=== PATIENT | female | born 1945 | race Caucasian/White ===

== ENCOUNTER 2017-01-20 07:30 | Day surgery (SDC) | payer MEDICARE ==
[2017-01-19 11:26] VITALS: BMI 22.3
[2017-01-20] MEDS ORDERED: Cyclopentolate 1% Opth Drop 2 ML BOT ONE (08:12)
[2017-01-20] MEDS ORDERED: Phenylephrine HCl 2.5% Ophth Soln 5 ML BOT ONE (08:12)
[2017-01-20] MEDS ORDERED: Fentanyl 100 MCG/2 ML VIAL ONE (08:50)
[2017-01-20] MEDS ORDERED: Diprivan 20 ML ONE (08:50)
[2017-01-20] MEDS ORDERED: Midazolam HCl 2 mg/2 ml Vial ONE (08:50)
--- NOTE | 2017-01-20 11:26 | OP ---
DATE OF PROCEDURE: 01/20/2017 PREOPERATIVE DIAGNOSIS: Epiretinal membrane, left eye. POSTOPERATIVE DIAGNOSIS: Epiretinal membrane, left eye. PROCEDURE: Pars plana vitrectomy and membrane peel, left eye. SURGEON: Dr. Daniele Kruse ANESTHESIA: Local with monitored anesthesia care. PROCEDURE IN DETAIL: The patient was identified in the preoperative holding area. Appropriate infor med consent for the planned surgical procedure on the left eye had been obtained. The patient was tr ansported to the operative suite where appropriate cardiopulmonary monitoring was established. Local anesthesia was obtained using retrobulbar and modified Van Lint lid block using 50/50 mixture of 4% lidocaine and 0.75% bupivacaine. The patient was prepped and draped in the usual sterile manner for ophthalmic surgery on the left eye. Lid speculum was placed in the left eye. The 25-gauge trocars w ere placed in conjunctiva and sclera supratemporally, inferotemporally, and supranasally. Infusion l ine was placed inferotemporally. Light pipe and vitreous cutter were inserted into the eye. Core of vitrectomy was performed. Indocyanine green dye was infused onto the posterior pole x2, identifying the epiretinal membrane. This was elevated on the edges using a membrane scraper and peeled across the macula. Indirect ophthalmoscopy was used to examine the retina 360 degrees. No holes, breaks or tears were identified. Trocars were removed and eye was noted to retain pressure well. Retrobulbar Kenalog and subconjunctival Ancef were placed. Atropine and antibiotic ointment were placed, and th e eye was patched and shielded. The patient was taken the postoperative recovery unit in good condit ion suffered no immediate perioperative period. DISCHARGE INSTRUCTIONS: The patient was instructed to keep patch and shield on, avoid lifting or denys ding, and follow up in the morning with Dr. Kruse.
[2017-01-20] MEDS ORDERED: Fluorouracil 100 MG, Enoxaparin Sodium 25 MG, EPINEPHrine 0.3 MG in Ophthalmic Irrigati... IVPB SCH (13:04)
[2017-01-20] MEDS ORDERED: Lidocaine 1% PF 5 ML VIAL ONE (16:35)
[2017-01-20] MEDS ORDERED: Propofol 200 MG/20 ML VIAL ONE (16:35)
== END 2017-01-20 10:50 | disposition home or self-care (01) ==
LOC: SDC 07:30
PROVIDERS: ATTEND Ophthalmology Retina Specialist
PROC: 08T53ZZ Resection of Left Vitreous, Percutaneous Approach (ICD-10-PCS; principal; 2017-01-20)
PROC: 08NF3ZZ Release Left Retina, Percutaneous Approach (ICD-10-PCS; 2017-01-20)
DX: H35.372 Puckering of macula, left eye (principal); I10 Essential (primary) hypertension; C85.90 Non-Hodgkin lymphoma, unspecified, unspecified site; Z88.8 Allergy status to other drugs, medicaments and biological substances; Z91.040 Latex allergy status; Z79.899 Other long term (current) drug therapy; Z98.42 Cataract extraction status, left eye; Z98.41 Cataract extraction status, right eye; Z95.828 Presence of other vascular implants and grafts; Z96.642 Presence of left artificial hip joint; Z90.49 Acquired absence of other specified parts of digestive tract; Z90.710 Acquired absence of both cervix and uterus; Z90.722 Acquired absence of ovaries, bilateral; Z90.79 Acquired absence of other genital organ(s)
CPT/HCPCS: J0171; J1650; J2001; J2250; J2704; J3010; J9190

== ENCOUNTER 2018-11-21 14:44 | Outpatient (CLI) | payer MEDICARE ==
[2018-11-21 15:02] LABS: #Basophils 0.1 thou/uL (0.0-0.2); #Eosinphils 0.1 thou/uL (0.0-0.7); #Lymphocytes 2.4 thou/uL (1.20-3.40); #Monocytes 0.6 thou/uL (0.11-0.59); #Neutrophils 3.6 thou/uL (1.40-6.50); %Eosinophils 2.2 % (0.0-10.0); %Lymphocytes 34.5 % (21.0-51.0); %Monocytes 9.2 % (0.0-10.0); %Neutrophils 53.1 % (42.0-75.0); Hemoglobin 12.3 g/dL (12.0-16.0); Mean Corpuscular HGB CONC 33.2 g/dL (32.0-36.0); Mean Corpuscular Hemoglobin 31.5 pg (27.0-31.0); Mean Corpuscular Volume 94.9 fL (78.0-98.0); Mean Platelet Volume 8.1 fL (7.4-10.4); Platelet Count 160 thou/uL (130-400); RBC Distribution Width 12.3 % (11.5-14.5); White Blood Cell (WBC) Count 6.8 thou/uL (4.8-10.8)
[2018-11-21 15:19] LABS: ALT (SGPT) 13 U/L (8-55); AST (SGOT) 20 U/L (5-34); Albumin 4.5 g/dL (3.4-4.8); Alkaline Phosphatase 65 U/L (40-110); Anion Gap 14 mmol/L (10-20); BUN (Urea Nitrogen) 17 mg/dL (9.8-20.1); Bilirubin, Total 0.3 mg/dL (0.2-1.2); Calc. Creatinine Clearance 0 mL/min (70-130); Calcium 9.7 mg/dL (7.8-10.44); Carbon Dioxide 27 mmol/L (23-31); Chloride 104 mmol/L (98-107); Estimated GFR-MDRD 73; Globulin 3.4 g/dL (2.4-3.5); Glucose 84 mg/dL (83-110); Potassium 3.8 mmol/L (3.5-5.1); Protein, Total 7.9 g/dL (6.0-8.3); Sodium 141 mmol/L (136-145)
--- NOTE | 2018-11-21 15:48 | RAD ---
TWO VIEW ABDOMEN: 11/21/18 Supine and upright views. INDICATIONS: Pain with hematuria. No evidence of urinary tract calculus identified on plain film. The bowel gas pattern unremarkable. O sseous structures unremarkable. Degenerative changes in the lumbar spine. IMPRESSION: Unremarkable bowel gas patter. No definite urinary tract calcification identified. POS: [facility]
== END 2018-11-21 14:45 | disposition home or self-care (01) ==
LOC: SCSRAD 14:44
PROVIDERS: ATTEND Family Medicine
DX: R31.9 Hematuria, unspecified (principal)
CPT/HCPCS: 36415; 74019; 80053; 85025

== ENCOUNTER 2018-11-28 13:41 | Outpatient (CLI) | payer MEDICARE ==
--- NOTE | 2018-11-28 14:39 | ULT ---
RENAL ULTRASOUND: HISTORY: Hematuria. COMPARISON: PET scan exams from 09/23/2015 and 11/25/2015. FINDINGS: Real-time imaging of the right and left kidneys shows normal sized kidneys with the right kidney araceli uring 8.9 and the left kidney measuring 8.8 cm. There is a lower pole parapelvic cyst on the right, m easuring 1.4 cm. On the left side there is what appears to be hydronephrosis but in reviewing the pre vious exam this actually appears to represent parapelvic cysts. The bladder region is unremarkable. IMPRESSION: Parapelvic cysts; otherwise unremarkable examination. POS: OFF
== END 2018-11-28 13:42 | disposition home or self-care (01) ==
LOC: SCSULT 13:41
PROVIDERS: ATTEND Family Medicine
DX: R31.9 Hematuria, unspecified (principal); N94.89 Other specified conditions associated with female genital organs and menstrual cycle
CPT/HCPCS: 76770

== ENCOUNTER 2018-12-15 08:48 | Outpatient (CLI) | payer MEDICARE ==
--- NOTE | 2018-12-15 10:29 | RAD ---
EXAM: Chest 2 views: HISTORY: Diffuse large B-cell lymphoma COMPARISON: 10/03/2015 FINDINGS: There is a normal-sized cardiomediastinal silhouette. Atherosclerotic calcifications are seen in the aorta. Increased interstitial markings are present. There is no evidence of consolidation, mass, or pleural effusion. The bones are unremarkable. IMPRESSION: No evidence of acute cardiopulmonary disease
--- NOTE | 2018-12-15 10:51 | CT ---
CT Abdomen Pelvis W WO con: 12/15/2018 12:00 AM CLINICAL HISTORY: History of B-cell lymphoma. Hematuria beginning in January.. TECHNIQUE: Multiple contiguous axial images were obtained and a CT of the abdomen and pelvis without and with IV contrast. Postcontrast images were obtained in the nephrographic and excretory phases. Sagittal and coronal reformats were performed. COMPARISON: None. FINDINGS: Kidneys and Urinary Tract: Right kidney and ureter: No calculi. No hydronephrosis or hydroureter. Parapelvic cysts in the hilum. No solid renal masses. No urothelial lesions: no filling defect, dilation, stricture or wall thickening. Left kidney and ureter: No calculi. No hydronephrosis or hydroureter. Parapelvic cysts in the hilum. No solid renal masses. No urothelial lesions: no filling defect, dilation, stricture or wall thickening. Urinary bladder: Normal, no calculi, mass or other lesions. Remainder of Abdomen and Pelvis: Liver: Normal. Gallbladder and biliary system: Normal. No CT evident gallstones. No biliary ductal dilatation. Spleen: Normal. Pancreas: Normal. Adrenal glands: Normal. GI tract: Normal. Abdominal aorta and its major branches: Atherosclerotic calcifications No aneurysm. Peritoneum/retroperitoneum: Normal. No ascites. No adenopathy. Pelvic structures: Status post hysterectomy. No pelvic lymphadenopathy. Body wall and musculoskeletal: Degenerative changes in the spine. The patient is status post left hip arthroplasty. Visualized lower thorax: Normal. No pulmonary parenchymal mass or pleural effusion. IMPRESSION: Bilateral renal parapelvic cysts.
[2018-12-15] MEDS ORDERED: Iopamidol 370 76% 100 ML VIAL ONE (11:39)
== END 2018-12-15 08:49 | disposition home or self-care (01) ==
LOC: CT 08:48
PROVIDERS: ATTEND Internal Medicine Medical Oncology
DX: C83.31 Diffuse large B-cell lymphoma, lymph nodes of head, face, and neck (principal); N28.1 Cyst of kidney, acquired
CPT/HCPCS: 71046; 74178

== ENCOUNTER 2019-01-05 07:01 | Day surgery (SDC) | payer MEDICARE ==
[2019-01-04 11:20] VITALS: BMI 21.4
[2019-01-05] MEDS ORDERED: PROPOFOL 200 MG/20 ML VIAL ONE (11:57)
[2019-01-05] MEDS ORDERED: Lidocaine 1% PF 5 ML VIAL ONE (11:58)
--- NOTE | 2019-01-05 15:33 | OP ---
DATE OF PROCEDURE: 01/05/2019 PROCEDURE PERFORMED: Colonoscopy. INDICATION FOR PROCEDURE: Screening for malignant neoplasm of the colon (no family history of polyps or cancer). DESCRIPTION OF PROCEDURE: After the risks and benefits of the procedure were explained to the patient including risks of bleeding, infection, perforation, reactions to anesthesia, aspiration, and/or pain, informed consent was obtained. The patient was then taken to the endoscopy suite, where she was placed in the left lateral decubitus position with deep sedation administered via propofol and anesthesia support. Once adequate sedation was achieved, a digital rectal examination was performed followed by introduction of the standard colonoscope, which was advanced to the cecum with some difficulty due to tortuosity and redundancy of the patient's colon that required manual abdominal pressure to facilitate passage of the scope. The quality of the prep was excellent. The patient tolerated the procedure well with no immediate perioperative complications. Upon conclusion of the procedure, all equipment was removed from the patient and she was transferred to Day Stay in satisfactory condition. FINDINGS: Digital rectal exam: Normal findings were seen on external examination. Colon findings: Normal-appearing mucosa was seen at the ileocecal valve and appendiceal orifice. Normal-appearing mucosa was also seen in the cecum, ascending, transverse, and descending colons. Three diverticula were seen within the sigmoid colon that were medium to large in size, but did not exhibit any evidence of diverticulitis. Normal-appearing mucosa was then seen in the rectum with normal findings on rectal retroflexion. IMPRESSION: 1. Mild sigmoid diverticulosis. 2. Otherwise normal colonoscopy. RECOMMENDATIONS: 1. We would recommend a higher fiber diet, given the presence of diverticulosis and history of chronic constipation. 2. Recommend a repeat colonoscopy in 10 years for further screening for colonic neoplasm. 3. Continue current medications. 4. Follow up in the GI clinic as needed. Job ID: [id number]
== END 2019-01-05 10:15 | disposition home or self-care (01) ==
LOC: SDC 07:01
PROVIDERS: ATTEND Internal Medicine
PROC: 0DJD8ZZ Inspection of Lower Intestinal Tract, Via Natural or Artificial Opening Endoscopic (ICD-10-PCS; principal; 2019-01-05)
DX: Z12.11 Encounter for screening for malignant neoplasm of colon (principal); K57.30 Diverticulosis of large intestine without perforation or abscess without bleeding; Z88.8 Allergy status to other drugs, medicaments and biological substances; Z91.040 Latex allergy status; Z91.048 Other nonmedicinal substance allergy status
CPT/HCPCS: J2001; J2704

== ENCOUNTER 2019-01-09 06:13 | Outpatient (CLI) | payer MEDICARE ==
[2019-01-09 13:24] LABS: Hemoglobin 12.2 g/dL (12.0-16.0); Mean Corpuscular Volume 94.3 fL (78.0-98.0); Mean Platelet Volume 7.4 fL (7.4-10.4); Platelet Count 161 thou/uL (130-400); RBC Distribution Width 11.5 % (11.5-14.5); White Blood Cell (WBC) Count 7.9 thou/uL (4.8-10.8)
[2019-01-09 13:29] LABS: Prothrombin Time 13.4 SEC (12.0-14.7)
[2019-01-09 13:30] LABS: PTT 33.8 SEC (22.9-36.1)
[2019-01-09 13:36] LABS: Bacteria/HPF 3+ HPF (None Seen); Bilirubin Negative (Negative); Blood, Urine 1+ (Negative); Clarity Turbid (Clear); Glucose, Urine (Dipstick) Normal (Negative); Leukocyte 500 Leu/uL (Negative); Nitrite 2+ (Negative); Protein, Urine (Dipstick) 10 mg/dL (Neg-Trace); Squamous Epithelial None Seen HPF (0-3); Urobilinogen Normal mg/dL (Less than 2); WBC/HPF Greater than 50 HPF (0-3)
[2019-01-09 13:49] LABS: Anion Gap 20 mmol/L (10-20); BUN (Urea Nitrogen) 12 mg/dL (9.8-20.1); Calc. Creatinine Clearance 0 mL/min (70-130); Calcium 9.3 mg/dL (7.8-10.44); Carbon Dioxide 19 mmol/L (23-31); Chloride 104 mmol/L (98-107); Estimated GFR-MDRD 78; Glucose 78 mg/dL (83-110); Potassium 3.9 mmol/L (3.5-5.1); Sodium 139 mmol/L (136-145)
--- NOTE | 2019-01-14 13:25 | EKG ---
Test Reason : Blood Pressure : / mmHG Vent. Rate : 063 BPM Atrial Rate : 063 BPM P-R Int : 128 ms QRS Dur : 082 ms QT Int : 418 ms P-R-T Axes : 077 085 039 degrees QTc Int : 427 ms Normal sinus rhythm Normal ECG No previous ECGs available Confirmed by YAHAIRA CORONA (2) on 01/14/2019 1:24:54 PM Referred By: GHADA Confirmed By:YAHAIRA CORONA
== END 2019-01-09 06:14 | disposition home or self-care (01) ==
LOC: LABBT 06:13
PROVIDERS: ATTEND Urology
DX: Z01.818 Encounter for other preprocedural examination (principal); D41.4 Neoplasm of uncertain behavior of bladder
CPT/HCPCS: 80048; 81001; 85027; 85610; 85730; 87077; 87086; 87186; 93005; 93010

== ENCOUNTER 2019-01-16 05:43 | Day surgery (SDC) | payer MEDICARE ==
[2019-01-09 12:34] VITALS: BMI 21.4
[2019-01-16] MEDS ORDERED: Fentanyl 100 MCG/2 ML VIAL ONE (06:59)
[2019-01-16] MEDS ORDERED: Levofloxacin 500 mg/D5W 100 ml Premix Bag ONE (07:22)
[2019-01-16] MEDS ORDERED: Iothalamate Meglumine 60% 50 ML VIAL FS ONE (07:46)
[2019-01-16] MEDS ORDERED: Ketorolac Tromethamine 30 MG/ML VIAL ONE (08:35)
[2019-01-16] MEDS ORDERED: Phenazopyridine HCl 97.5 MG TABLET ONE (08:35)
[2019-01-16] MEDS ORDERED: Oxybutynin 5 MG TAB ONE (08:35)
[2019-01-16] MEDS ORDERED: Morphine 2 MG/ML SYRINGE ONE (09:21)
[2019-01-16] MEDS ORDERED: Dexamethasone 20 MG/5 ML VIAL ONE (10:05)
[2019-01-16] MEDS ORDERED: PROPOFOL 200 MG/20 ML VIAL ONE (10:05)
[2019-01-16] MEDS ORDERED: PHENYLEPHRINE-NS 100 MCG/ML 10 ML SYRINGE ONE (10:05)
[2019-01-16] MEDS ORDERED: Lidocaine 1% PF 5 ML VIAL ONE (10:05)
[2019-01-16] MEDS ORDERED: Ondansetron PF 4 MG/2 ML Vial ONE (10:05)
--- NOTE | 2019-01-16 11:07 | OP ---
DATE OF PROCEDURE: 01/16/2019 PREOPERATIVE DIAGNOSIS: Bladder tumor. POSTOPERATIVE DIAGNOSIS: Bladder tumor. PROCEDURES PERFORMED: Transurethral resection of large bladder tumor, retrograde pyelogram. ANESTHESIA: General. SPECIMEN: Bladder tumor, left wall. ESTIMATED BLOOD LOSS: Minimal. COMPLICATIONS: None. DESCRIPTION OF PROCEDURE: After informed consent, the patient was taken to the operating room, transferred to the table under her own power. Anesthesia was established. A time-out was performed showing the correct patient, site, and procedure. Preoperative antibiotics were administered. She was prepped and draped in the lithotomy position. We began by performing a bimanual exam, noting no abnormalities. I then inserted the rigid cystoscope and performed systematic examination of the bladder with both 30-degree and 70-degree lenses. She has a 4-cm tumor on the left wall with 3 cm of low profile tumor emanating towards the posterior wall. The left ureteral orifice was uninvolved. There were no other mucosal abnormalities. Bilateral retrograde pyelograms performed showing good filling of both ureters and renal pelvis without filling defects or hydronephrosis. I then switched to the resectoscope and using the resection loop, I removed the large tumor and cauterized the entire area involved with low profile tumor. All edges of resection were cauterized ensuring meticulous hemostasis. The bladder was then drained removing the specimen, which was passed off and then the bladder was re-examined noting no active bleeding. There was no evidence of bladder rupture. The scope was then withdrawn and an 18-Azeri silicone catheter placed with 10 mL instilled in the balloon. This drained clear fluid. A 20 mL of mitomycin solution was instilled in the bladder through the catheter, which was then capped. This will remain for 1 hour in PACU. The patient was then brought down from lithotomy, awoken from anesthesia, transferred back to her hospital bed and taken to PACU in stable condition. Job ID: [id number]
== END 2019-01-16 10:50 | disposition home or self-care (01) ==
LOC: SDC 05:43
PROVIDERS: ATTEND Urology
PROC: 0TBB8ZX Excision of Bladder, Via Natural or Artificial Opening Endoscopic, Diagnostic (ICD-10-PCS; principal; 2019-01-16)
DX: C67.2 Malignant neoplasm of lateral wall of bladder (principal); Z85.72 Personal history of non-Hodgkin lymphomas; Z88.8 Allergy status to other drugs, medicaments and biological substances; Z91.040 Latex allergy status; Z91.048 Other nonmedicinal substance allergy status
CPT/HCPCS: 52235; 76000; J9280; 88305; J1100; J1885; J1956; J2001; J2270; J2405; J2704; J3010

== ENCOUNTER 2019-02-06 05:53 | Day surgery (SDC) | payer MEDICARE ==
[2019-02-05 11:38] VITALS: BMI 21.4
[2019-02-06] MEDS ORDERED: Cyclopentolate 1% Opth Drop 2 ML BOT ONE (06:09)
[2019-02-06] MEDS ORDERED: Phenylephrine 2.5% Ophth Soln 5 ML BOT ONE (06:10)
[2019-02-06] MEDS ORDERED: EPINEPHrine 0.3 MG in Ophthalmic Irrigation Solution 500 ML IRR SCH (06:30)
[2019-02-06] MEDS ORDERED: Midazolam HCl 2 mg/2 ml Vial ONE (06:54)
[2019-02-06] MEDS ORDERED: PROPOFOL 0 ML ONE (06:54)
[2019-02-06] MEDS ORDERED: Fentanyl 100 MCG/2 ML VIAL ONE (06:54)
[2019-02-06] MEDS ORDERED: PROPOFOL 20 ML ONE (06:55)
--- NOTE | 2019-02-06 09:35 | OP ---
DATE OF PROCEDURE: 02/06/2019 PRINCIPAL PREOPERATIVE DIAGNOSIS: Epiretinal membrane, left eye. POSTOPERATIVE DIAGNOSIS: Epiretinal membrane, left eye. NAME OF PROCEDURES PERFORMED: 1. 25-gauge pars plana vitrectomy, left eye. 2. Epiretinal membrane removal, left eye. 3. Partial internal limiting membrane removal, left eye. ESTIMATED BLOOD LOSS: None. SPECIMENS REMOVED: None. COMPLICATIONS: None. ANESTHESIA: MAC with retrobulbar block. SUMMARY OF OPERATION: The patient was identified in the preoperative holding area, where the correct eye being the left eye was marked for surgery. The patient was taken to the operating room, where MAC anesthesia was induced. A retrobulbar block was administered to the left eye. The block consisted of 1:1 ratio of 4% lidocaine and 0.75% Marcaine. Total of 5 mL was administered. The left eye was then prepped and draped in the usual sterile ophthalmic fashion for surgery. A wire-clip lid speculum was placed. A standard 25-gauge pars plana vitrectomy platform was fashioned with trocars placed approximately 3.5 mm from limbus. The infusion was noted to be within the vitreous cavity prior to being turned on to an infusion pressure of 30 mmHg. A posterior capsulectomy was performed with the use of the microvitrector to allow for clear visualization posteriorly. The light pipe and microvitrector were introduced in the eye under visualization of the BIOM viewing system. A peripheral shave vitrectomy was performed in this previously vitrectomized eye. Following completion of vitrectomy, ICG dye was used to stain the internal limiting membrane. Using the Saul ILM forceps, an epiretinal membrane peel was completed in a circumferential fashion about the fovea. The peel extended approximately 2 disk diameters in radius from the fovea circumferentially. Subsequently, the internal limiting membrane was re-stained with ICG dye. The internal limiting membrane did not come up in a smooth sheet. However, it came up in a piecemeal fashion, removing it to the safest extent possible. Following peeling, the microvitrector was reintroduced in the eye to remove the residual vitreous debris. A 360-degree scleral depressed exam of the periphery revealed no defects. The cannulas were sequentially removed with suturing required of the superior 2 sclerotomies with 8-0 Vicryl suture. Following suturing, all sclerotomies were noted to be watertight. Subconjunctival Ancef and Kenalog were injected. The wire-clip lid speculum was removed followed by application of TobraDex ophthalmic ointment and a light patch and shield. The patient tolerated the procedure well and was taken to the outpatient recovery area in good condition. Job ID: [id number]
[2019-02-06] MEDS ORDERED: Triamcinolone 40 MG/ML VIAL ONE (10:59)
[2019-02-06] MEDS ORDERED: Lidocaine 4% PF 5 ML AMP ONE (10:59)
[2019-02-06] MEDS ORDERED: Maxitrol 0.1% Opth Oint 3.5 GM TUBE ONE (10:59)
[2019-02-06] MEDS ORDERED: Bupivacaine PF 0.75% SDV 10 ML ONE (10:59)
[2019-02-06] MEDS ORDERED: Lidocaine 1% PF 5 ML VIAL ONE (10:59)
[2019-02-06] MEDS ORDERED: CEFAZOLIN 1 GM VIAL ONE (10:59)
[2019-02-06] MEDS ORDERED: Indocyanine Green 25 MG/10 ML VIAL ONE (10:59)
== END 2019-02-06 09:09 | disposition home or self-care (01) ==
LOC: SDC 05:53
PROVIDERS: ATTEND Ophthalmology Retina Specialist
PROC: 08T53ZZ Resection of Left Vitreous, Percutaneous Approach (ICD-10-PCS; principal; 2019-02-06)
PROC: 08NF3ZZ Release Left Retina, Percutaneous Approach (ICD-10-PCS; 2019-02-06)
DX: H35.372 Puckering of macula, left eye (principal); Z88.8 Allergy status to other drugs, medicaments and biological substances; Z91.040 Latex allergy status
CPT/HCPCS: J0171; J0690; J2001; J2250; J2704; J3010; J3301; J3490

== ENCOUNTER 2019-02-12 12:21 | Outpatient (CLI) | payer MEDICARE ==
--- NOTE | 2019-02-12 13:05 | RAD ---
XR Hip Lt 2-3 View: 02/12/2019 12:00 AM CLINICAL INDICATION: Pain COMPARISON: None. FINDINGS: No acute fracture. Left hip prosthesis is in place, without acute hardware complication. There are scattered degenerative change of the osseous structures. IMPRESSION: 1. No acute osseous abnormality.
--- NOTE | 2019-02-12 13:06 | RAD ---
XR Femur Lt 2 View STANDARD: 02/12/2019 12:00 AM CLINICAL INDICATION: Pain COMPARISON: None. FINDINGS: No fracture or dislocation. Left hip prosthesis is in place, without hardware complication. There is osteoarthritis of the imaged left knee. IMPRESSION: 1. No acute osseous abnormality.
--- NOTE | 2019-02-12 13:07 | RAD ---
XR Lumbar Spine 2 Or 3 View: 02/12/2019 12:00 AM CLINICAL INDICATION: Pain COMPARISON: None. FINDINGS: Fracture:No fracture. Arthropathy:Multilevel moderate degenerative change of lumbar spine. Grade 1 spondylolisthesis, L4-5 Incidental findings:Vascular disease IMPRESSION: 1. No acute osseous abnormality. 2. Moderate multilevel degenerative change of lumbar spine.
== END 2019-02-12 12:22 | disposition home or self-care (01) ==
LOC: SCSRAD 12:21
PROVIDERS: ATTEND Family Medicine
DX: R29.898 Other symptoms and signs involving the musculoskeletal system (principal); M47.816 Spondylosis without myelopathy or radiculopathy, lumbar region
CPT/HCPCS: 72100; 87086

== ENCOUNTER 2021-01-28 13:27 | Outpatient (CLI) | payer MEDICARE | END 2021-01-28 13:28 | disposition home or self-care (01) | LOC: BICMAMMO 13:27 | PROVIDERS: ATTEND Internal Medicine Medical Oncology | DX: Z12.31 Encounter for screening mammogram for malignant neoplasm of breast (principal); Z85.72 Personal history of non-Hodgkin lymphomas | CPT/HCPCS: 77063; 77067 ==

== ENCOUNTER 2021-07-03 15:26 | Emergency (ER) | payer MEDICARE ==
[2021-07-03 16:27] LABS: #Eosinphils 0.1 thou/uL (0.0-0.7); #Lymphocytes 1.5 thou/uL (1.20-3.40); #Monocytes 0.5 thou/uL (0.11-0.59); #Neutrophils 3.1 thou/uL (1.40-6.50); %Basophils 0.6 % (0.0-1.0); %Eosinophils 2.6 % (0.0-10.0); %Neutrophils 58.9 % (42.0-75.0); Hemoglobin 11.2 g/dL (12.0-16.0); Mean Corpuscular Hemoglobin 32.2 pg (27.0-31.0); Mean Corpuscular Volume 97.6 fL (78.0-98.0); Mean Platelet Volume 7.4 fL (7.4-10.4); Platelet Count 151 thou/uL (130-400); RBC Distribution Width 11.8 % (11.5-14.5); Red Blood Cell (RBC) Count 3.47 mill/uL (4.20-5.40); White Blood Cell (WBC) Count 5.3 thou/uL (4.8-10.8)
[2021-07-03 16:37] LABS: INR-International Normal Ratio 1.1; PTT 35.4 sec (22.9-36.1); Prothrombin Time 14.2 sec (12.0-14.7)
[2021-07-03 17:00] LABS: ALT (SGPT) 14 U/L (8-55); AST (SGOT) 25 U/L (5-34); Albumin 4.2 g/dL (3.4-4.8); Alkaline Phosphatase 55 U/L (40-110); Anion Gap 16 mmol/L (10-20); BUN (Urea Nitrogen) 13 mg/dL (9.8-20.1); Bilirubin, Total 0.5 mg/dL (0.2-1.2); Calc. Creatinine Clearance 0 mL/min (70-130); Calcium 9.2 mg/dL (7.8-10.44); Carbon Dioxide 25 mmol/L (23-31); Chloride 101 mmol/L (98-107); Globulin 3.4 g/dL (2.4-3.5); Glucose 90 mg/dL (83-110); Iron 56 ug/dL (50-170); Iron Binding Capacity, Total 211 mcg/dL (265-497); Potassium 3.7 mmol/L (3.5-5.1); Protein, Total 7.6 g/dL (5.8-8.1); Sodium 138 mmol/L (136-145)
== END 2021-07-03 17:33 | disposition home or self-care (01) ==
LOC: ERS 15:26
DX: R19.5 Other fecal abnormalities (principal)
CPT/HCPCS: 36415; 80053; 82274; 82728; 83540; 83550; 85025; 85610; 85730; 86850; 86900; 86901; 93005; 94760

== ENCOUNTER 2021-08-06 13:44 | Outpatient (CLI) | payer MEDICARE | END 2021-08-06 13:45 | disposition home or self-care (01) | LOC: BICULT 13:44 | PROVIDERS: ATTEND Family Medicine | DX: R10.9 Unspecified abdominal pain (principal); N13.30 Unspecified hydronephrosis; Z85.51 Personal history of malignant neoplasm of bladder | CPT/HCPCS: 76770 ==

== ENCOUNTER 2021-08-21 10:16 | Outpatient (CLI) | payer OTHER ==
[~2021-08-21 10:16] MED LIST: ISOVUE-370 76%-LOCM 1 ML ONE
== END 2021-08-21 10:17 | disposition home or self-care (01) ==
LOC: BICCT 10:16
PROVIDERS: ATTEND Urology
DX: N13.30 Unspecified hydronephrosis (principal); N28.1 Cyst of kidney, acquired; M47.816 Spondylosis without myelopathy or radiculopathy, lumbar region; M43.16 Spondylolisthesis, lumbar region; I70.0 Atherosclerosis of aorta; K59.00 Constipation, unspecified; Z96.642 Presence of left artificial hip joint
CPT/HCPCS: 74177; 82565; Q9966

== ENCOUNTER 2022-03-17 11:07 | Outpatient (CLI) | payer OTHER | END 2022-03-17 11:08 | disposition home or self-care (01) | LOC: BICMAMMO 11:07 | PROVIDERS: ATTEND Family Medicine | DX: Z12.31 Encounter for screening mammogram for malignant neoplasm of breast (principal); Z85.72 Personal history of non-Hodgkin lymphomas | CPT/HCPCS: 77063; 77067 ==

== ENCOUNTER 2022-09-13 06:27 | Inpatient (IN) | payer OTHER ==
[2022-09-13 07:35] LABS: #Monocytes 0.6 thou/uL (0.11-0.59); #Neutrophils 6.5 thou/uL (1.40-6.50); %Basophils 0.3 % (0.0-1.0); %Lymphocytes 10.6 % (21.0-51.0); %Monocytes 7.1 % (0.0-10.0); %Neutrophils 81.6 % (42.0-75.0); Hemoglobin 11.9 g/dL (12.0-16.0); Mean Corpuscular HGB CONC 32.8 g/dL (32.0-36.0); Mean Corpuscular Volume 100.6 fl (78.0-98.0); Mean Platelet Volume 10.2 fL (7.4-10.4); Platelet Count 139 10x3/uL (130-400); Red Blood Cell (RBC) Count 3.61 mill/uL (4.20-5.40); White Blood Cell (WBC) Count 7.9 10x3/uL (4.8-10.8)
[2022-09-13 07:42] LABS: Bacteria/HPF 4+ HPF (None Seen); Bilirubin Negative (Negative); Blood, Urine Negative (Negative); CAUTI Indications for Culture Alt mental st,lethar; Clarity Turbid (Clear); Glucose, Urine (Dipstick) Normal (Negative); Ketone, Urine Negative (Negative); Leukocyte 25 Leu/uL (Negative); Nitrite 2+ (Negative); Protein, Urine (Dipstick) 50 mg/dL (Neg-Trace); Specific Gravity, Urine 1.028 (1.002-1.036); Squamous Epithelial 0-3 HPF (0-3); Urobilinogen Normal mg/dL (Less than 2)
[2022-09-13 07:55] LABS: RBC/HPF 0-3 HPF (0-3)
[2022-09-13 07:57] LABS: Urine Culture Reflex No No
[2022-09-13 08:00] LABS: ALT (SGPT) 15 U/L (8-55); AST (SGOT) 26 U/L (5-34); Albumin 4.6 g/dL (3.4-4.8); Alkaline Phosphatase 37 U/L (40-110); Anion Gap 16 mmol/L (10-20); BUN (Urea Nitrogen) 23 mg/dL (9.8-20.1); Bilirubin, Total 0.9 mg/dL (0.2-1.2); Calc. Creatinine Clearance 0 mL/min (70-130); Calcium 9.7 mg/dL (7.8-10.44); Carbon Dioxide 30 mmol/L (23-31); Chloride 110 mmol/L (98-107); Estimated GFR 60; Globulin 3.1 g/dL (2.4-3.5); Glucose 132 mg/dL (83-110); Magnesium 2.2 mg/dL (1.6-2.6); Potassium 3.5 mmol/L (3.5-5.1); Protein, Total 7.7 g/dL (5.8-8.1)
[2022-09-13 08:11] LABS: Sodium 152 mmol/L (136-145)
[2022-09-13] MEDS ORDERED: cefTRIAXone (ROCEPHIN) 2 GM VIAL ONE (08:54)
[2022-09-13] MEDS ORDERED: Acetaminophen 325 MG TAB PO PRN (09:11)
[2022-09-13] MEDS ORDERED: Ondansetron ODT 4 MG TAB PO PRN (09:11)
[2022-09-13] MEDS ORDERED: Ondansetron PF 4 MG/2 ML Vial IVP PRN (09:11)
[2022-09-13] MEDS ORDERED: Guaifenesin DM 100-10/5 ML UDCUP PO PRN (10:02)
[2022-09-13] MEDS ORDERED: Calcium Carbonate 500 MG ChewTAB PO PRN (10:02)
[2022-09-13] MEDS ORDERED: Bisacodyl 10 MG SUPP PR PRN (10:02)
[2022-09-13] MEDS ORDERED: Senokot S 8.6-50 MG TAB PO PRN (10:02)
[2022-09-13] MEDS: Dextrose 5% in Water 1,000 ML IV SCH ×2 (11:13→20:06)
[2022-09-13 12:03] VITALS: BMI 17.6
[2022-09-13 16:42] LABS: Anion Gap 13 mmol/L (10-20); BUN (Urea Nitrogen) 20 mg/dL (9.8-20.1); Calc. Creatinine Clearance 42 mL/min (70-130); Calcium 8.5 mg/dL (7.8-10.44); Carbon Dioxide 25 mmol/L (23-31); Chloride 106 mmol/L (98-107); Estimated GFR 83; Glucose 153 mg/dL (83-110); Potassium 3.8 mmol/L (3.5-5.1); Sodium 140 mmol/L (136-145)
[2022-09-13] MEDS: Famotidine 20 MG TAB PO SCH (20:05)
[2022-09-14] MEDS ORDERED: Sodium Chloride 0.9% 500 ML IV SCH (04:15)
[2022-09-14] MEDS ORDERED: Midodrine HCl 5 MG TAB PO SCH (04:15)
[2022-09-14 07:27] LABS: #Eosinphils 0.1 thou/uL (0.0-0.7); #Monocytes 0.5 thou/uL (0.11-0.59); #Neutrophils 6.2 thou/uL (1.40-6.50); %Basophils 0.3 % (0.0-1.0); %Eosinophils 1.1 % (0.0-10.0); %Lymphocytes 21.3 % (21.0-51.0); %Monocytes 5.8 % (0.0-10.0); %Neutrophils 70.9 % (42.0-75.0); Hemoglobin 12.3 g/dL (12.0-16.0); Mean Corpuscular Hemoglobin 32.5 pg (27.0-31.0); Mean Corpuscular Volume 101.3 fl (78.0-98.0); Mean Platelet Volume 10.5 fL (7.4-10.4); Platelet Count 132 10x3/uL (130-400); RBC Distribution Width 12.3 % (11.5-14.5); Red Blood Cell (RBC) Count 3.79 mill/uL (4.20-5.40); White Blood Cell (WBC) Count 8.7 10x3/uL (4.8-10.8)
[2022-09-14 07:54] LABS: Anion Gap 12 mmol/L (10-20); BUN (Urea Nitrogen) 18 mg/dL (9.8-20.1); Calc. Creatinine Clearance 55 mL/min (70-130); Calcium 8.4 mg/dL (7.8-10.44); Carbon Dioxide 22 mmol/L (23-31); Chloride 103 mmol/L (98-107); Estimated GFR 92; Glucose 105 mg/dL (83-110); Potassium 3.4 mmol/L (3.5-5.1); Sodium 134 mmol/L (136-145)
[2022-09-14] MEDS: Cyanocobalamin (Vitamin B-12) 1,000 MCG TAB PO SCH (08:28)
[2022-09-14] MEDS: Famotidine 20 MG TAB PO SCH ×2 (08:28→19:31)
[2022-09-14] MEDS: cefTRIAXone\\ROCEPHIN 1 GM in Sodium Chloride 0.9% 100 ML IVPB SCH (08:29)
[2022-09-14] MEDS ORDERED: CYANOCOBALAMIN 1000 MCG PO SCH (09:00)
[2022-09-14] MEDS ORDERED: Folic Acid 1 MG TAB PO SCH (19:30)
[2022-09-15 07:48] LABS: Anion Gap 12 mmol/L (10-20); BUN (Urea Nitrogen) 17 mg/dL (9.8-20.1); Calc. Creatinine Clearance 52 mL/min (70-130); Calcium 8.1 mg/dL (7.8-10.44); Carbon Dioxide 22 mmol/L (23-31); Chloride 102 mmol/L (98-107); Estimated GFR 90; Glucose 76 mg/dL (83-110); Potassium 3.4 mmol/L (3.5-5.1); Sodium 133 mmol/L (136-145)
[2022-09-15] MEDS: Potassium Chloride 8 MEQ TAB PO SCH (08:32)
[2022-09-15] MEDS: Folic Acid 1 MG TAB PO SCH (08:32)
[2022-09-15] MEDS: Famotidine 20 MG TAB PO SCH ×2 (08:32→20:39)
[2022-09-15] MEDS: Cyanocobalamin (Vitamin B-12) 1,000 MCG TAB PO SCH (08:32)
[2022-09-15] MEDS: cefTRIAXone\\ROCEPHIN 1 GM in Sodium Chloride 0.9% 100 ML IVPB SCH (08:35)
[2022-09-15 08:46] LABS: #Eosinphils 0.1 thou/uL (0.0-0.7); #Monocytes 0.6 thou/uL (0.11-0.59); %Basophils 0.3 % (0.0-1.0); %Lymphocytes 12.1 % (21.0-51.0); %Monocytes 6.6 % (0.0-10.0); %Neutrophils 79.5 % (42.0-75.0); Hemoglobin 12.9 g/dL (12.0-16.0); Mean Corpuscular Hemoglobin 33.1 pg (27.0-31.0); Mean Platelet Volume 11.2 fL (7.4-10.4); RBC Distribution Width 12.4 % (11.5-14.5); White Blood Cell (WBC) Count 8.8 10x3/uL (4.8-10.8)
[2022-09-15 08:52] LABS: Mean Corpuscular Volume 97.2 fl (78.0-98.0)
[2022-09-15 08:53] LABS: Platelet Count 119 10x3/uL (130-400)
[2022-09-15] MEDS ORDERED: LevoFLOXacin 750 mg/D5W 750 MG in Premix Bag 1 BAG IVPB SCH (16:00)
[2022-09-16 07:10] LABS: Anion Gap 16 mmol/L (10-20); BUN (Urea Nitrogen) 12 mg/dL (9.8-20.1); Calc. Creatinine Clearance 46 mL/min (70-130); Calcium 8.2 mg/dL (7.8-10.44); Carbon Dioxide 19 mmol/L (23-31); Chloride 104 mmol/L (98-107); Estimated GFR 80; Glucose 98 mg/dL (83-110); Potassium 3.6 mmol/L (3.5-5.1); Sodium 135 mmol/L (136-145)
[2022-09-16] MEDS: Folic Acid 1 MG TAB PO SCH (08:24)
[2022-09-16] MEDS: Cyanocobalamin (Vitamin B-12) 1,000 MCG TAB PO SCH (08:24)
[2022-09-16] MEDS: Famotidine 20 MG TAB PO SCH ×2 (08:24→19:58)
[2022-09-16] MEDS: Potassium Chloride 8 MEQ TAB PO SCH (08:24)
[2022-09-17] MEDS: Potassium Chloride 8 MEQ TAB PO SCH (07:58)
[2022-09-17] MEDS: Folic Acid 1 MG TAB PO SCH (07:58)
[2022-09-17] MEDS: Famotidine 20 MG TAB PO SCH ×2 (07:58→20:25)
[2022-09-17] MEDS: Cyanocobalamin (Vitamin B-12) 1,000 MCG TAB PO SCH (07:58)
[2022-09-17] MEDS ORDERED: LevoFLOXacin 750 mg/D5W 750 MG in Premix Bag 1 BAG IVPB SCH (16:00)
[2022-09-17] MEDS ORDERED: LevoFLOXacin 750 MG TAB PO SCH (20:00)
[2022-09-18] MEDS: Folic Acid 1 MG TAB PO SCH (09:15)
[2022-09-18] MEDS: Famotidine 20 MG TAB PO SCH (09:15)
[2022-09-18] MEDS: Cyanocobalamin (Vitamin B-12) 1,000 MCG TAB PO SCH (09:15)
[2022-09-18] MEDS: Potassium Chloride 8 MEQ TAB PO SCH (09:15)
[2022-09-18 12:43] VITALS: BP 107/59; TEMP 97.9
== END 2022-09-18 16:02 | DRG 689 ==
LOC: ERS 06:27 → T4-A 08:58 → EEVIPCON 09-14 11:57 → OBSVTOIN 09-14 11:57
PROVIDERS: ADMIT Internal Medicine; ATTEND Family Medicine
DX: N30.00 Acute cystitis without hematuria (principal); G93.41 Metabolic encephalopathy; E87.0 Hyperosmolality and hypernatremia; E44.0 Moderate protein-calorie malnutrition; Z68.1 Body mass index [BMI] 19.9 or less, adult; N17.9 Acute kidney failure, unspecified; C85.90 Non-Hodgkin lymphoma, unspecified, unspecified site; Z96.642 Presence of left artificial hip joint; C67.9 Malignant neoplasm of bladder, unspecified; R62.7 Adult failure to thrive; R53.81 Other malaise; E86.0 Dehydration; I12.9 Hypertensive chronic kidney disease with stage 1 through stage 4 chronic kidney disease, or unspecified chronic kidney disease; N18.2 Chronic kidney disease, stage 2 (mild); D63.1 Anemia in chronic kidney disease; E87.6 Hypokalemia; F03.90 Unspecified dementia, unspecified severity, without behavioral disturbance, psychotic disturbance, mood disturbance, and anxiety; B95.2 Enterococcus as the cause of diseases classified elsewhere; B95.7 Other staphylococcus as the cause of diseases classified elsewhere; Z88.8 Allergy status to other drugs, medicaments and biological substances; Z90.710 Acquired absence of both cervix and uterus; Z90.49 Acquired absence of other specified parts of digestive tract; Z91.040 Latex allergy status; Z91.048 Other nonmedicinal substance allergy status; Z98.890 Other specified postprocedural states; Z79.899 Other long term (current) drug therapy
CPT/HCPCS: 36415; 51701; 70450; 71045; 80048; 80053; 81001; 82274; 82607; 83735; 84443; 85025; 87040; 87077; 87086; 87186; 93005; 96372; 96374; G0378; J0696; J1650; J1956; J3490; J7030; J7070